=== PATIENT | female | born 1980 | race Caucasian/White ===

== ENCOUNTER 2018-04-11 13:03 | Emergency (ER) | payer MEDICAID ==
[~2018-04-11] VITALS: Ht 157.5 cm; Wt 50.2 kg
[2018-04-11 13:26] VITALS: BP 105/69
[2018-04-11] MEDS ORDERED: LIDOCAINE-MPF 1%, 5ML INFIL ONE (13:30)
[2018-04-11] MEDS ORDERED: LIDOCAINE-MPF 1%, 5ML ONE (13:39)
[2018-04-11] MEDS ORDERED: KETOROLAC 30 MG/1 ML ONE (13:53)
[2018-04-11] MEDS ORDERED: KETOROLAC 30 MG/1 ML IM ONE (14:00)
--- NOTE | 2018-04-11 14:30 | NUR ---
EXTENSIVE ABSCESSES TO L UPPER ARM AND R BREAST. POC TO INCLUDE CT W/CONTRAST AND IV ANTIBIOTICS. PT TO BE MOVED TO CORE. NOTE TO BASKET WEAVER.
--- NOTE | 2018-04-11 14:46 | NUR ---
PT REFUSING TO STAY, STATES SHE HAS TO BE ON BUS AT 3PM. CELESTINO AND DR FUENTES SPOKE WITH PT AND EXPLAINED IN DETAIL RISKS AND CONSEQUENCES OF LEAVING AMA. PT SIGNED AMA FORM, AWAITING RX FOR ANTIBIOTICS FROM PA.
[2018-04-11] MEDS ORDERED: PHARMACOKINETIC CONSULTATION MC ONE (15:00)
[2018-04-11] MEDS ORDERED: SODIUM CHLORIDE FLUSH 10ML SYR IVF ONE (15:00)
[2018-04-11] MEDS ORDERED: VANCOMYCIN PER PHARMACY MC PRN (15:00)
[2018-04-11] MEDS ORDERED: VANCOMYCIN PMX 1GM/200ML 200 ML IVPB ONE (15:00)
== END 2018-04-11 14:49 | disposition left against medical advice (07) ==
LOC: ED 14:43
DX: L02.414 Cutaneous abscess of left upper limb (principal); L03.313 Cellulitis of chest wall; L02.213 Cutaneous abscess of chest wall; F17.200 Nicotine dependence, unspecified, uncomplicated
CPT/HCPCS: 10061; 99284; J1885; 10060

== ENCOUNTER 2018-04-30 13:45 | Emergency (ER) | payer MEDICAID ==
[~2018-04-30] VITALS: Ht 157.5 cm; Wt 48.9 kg
[2018-04-30 13:57] VITALS: BP 144/77
[2018-04-30] MEDS ORDERED: LIDOCAINE 1%-EPI 1:100K, 30ML ONE (15:07)
[2018-04-30] MEDS ORDERED: LIDOCAINE 1%-EPI 1:100K, 20ML SQ ONE (15:30)
--- NOTE | 2018-04-30 15:31 | NUR ---
BREAK RN FOR PRIMARY RN KEKE, RECEIVED REPORT FROM KEKE DYER. KRYSTLE PA AT BEDSIDE FOR EVALUATION. CALL LIGHT IN REACH. FALL PRECAUTIONS IN PLACE.
--- NOTE | 2018-04-30 15:50 | NUR ---
BREAK MANISHA. KRYSTLE TIRADO AT BEDSIDE FOR I&D.
--- NOTE | 2018-04-30 16:15 | NUR ---
BREAK RN. BEDSIDE REPORT AND CARE BACK TO PRIMARY RN KEKE AT THIS TIME.
--- NOTE | 2018-04-30 17:12 | NUR ---
Left hip dressing placed using adaptic, abd pad, and gauze. Dressing placed on proximal aspect of right arm using gauze and kerlex. PT educated on dressing changes. Pt educated on wound care. Aware to return if symptoms worsen before recheck in 2 days.
== END 2018-04-30 17:17 | disposition home or self-care (01) ==
LOC: ED 17:15
DX: L02.413 Cutaneous abscess of right upper limb (principal); L02.31 Cutaneous abscess of buttock
CPT/HCPCS: 10060; 10061; 99284

== ENCOUNTER 2019-02-26 09:53 | Emergency (ER) | payer MEDICAID ==
[~2019-02-26] VITALS: Ht 157.5 cm; Wt 50.0 kg
[2019-02-26 09:56] VITALS: BP 111/68
--- NOTE | 2019-02-26 10:23 | NUR ---
Patient/Caregiver given discharge instructions and they have confirmed that they understand the instructions. Patient ambulatory with steady gait.
== END 2019-02-26 10:25 | disposition home or self-care (01) ==
LOC: ED 10:14
DX: G89.29 Other chronic pain (principal); Z76.0 Encounter for issue of repeat prescription
CPT/HCPCS: 99283

== ENCOUNTER 2019-03-04 13:15 | Emergency (ER) | payer MEDICAID ==
[~2019-03-04] VITALS: Ht 157.5 cm; Wt 51.7 kg
[2019-03-04 13:17] VITALS: BP 135/82
== END 2019-03-04 13:39 | disposition home or self-care (01) ==
LOC: ED 13:30
DX: R51 Headache (principal); Z76.0 Encounter for issue of repeat prescription
CPT/HCPCS: 99283

== ENCOUNTER 2019-09-08 14:05 | Emergency (ER) | payer MEDICAID ==
[~2019-09-08] VITALS: Ht 157.5 cm; Wt 51.2 kg
[~2019-09-08 14:05] MED LIST: GABA300C10 PO; METH10SY PO
[2019-09-08 14:09] VITALS: BP 160/97
== END 2019-09-08 14:48 | disposition home or self-care (01) ==
LOC: ED 14:35
DX: M54.12 Radiculopathy, cervical region (principal); G89.29 Other chronic pain; Z76.0 Encounter for issue of repeat prescription; F17.200 Nicotine dependence, unspecified, uncomplicated
CPT/HCPCS: 99281